=== PATIENT | male | born 1980 | race Two or more races ===

== ENCOUNTER → 2019-09-16 | Emergency (ER) | payer OTHER ==
[~2019-09-16] MED LIST: FOLIC ACID INJECTION - 1 MG, THIAMINE HCL 100 MG, MULTIVIT INJECTION ADULT 10 ML in SOD... IVPB ONE; SODIUM CHLORIDE 1,000 ML IV SCH
--- NOTE | 2019-09-16 23:48 | PDOC ---
History of Present Illness - General Stated Complaint: DIZZINESS Time Seen by Provider: 09/16/19 23:48 - History of Present Illness Initial Comments: 09/17/19 00:59 39 year old patient with a history of alcohol abuse who presents with episode of lightheadedness that occurred while walkign across the street. The patient denies persistence of lightheadedness, denies nausea, vomiting, unsteadiness on his feet or recent falls. Denies chest pain or shortness of breath. ROS GENERAL/CONSTITUTIONAL: No fever or chills. No weakness. CARDIOVASCULAR: No chest pain or shortness of breath RESPIRATORY: No cough, wheezing, or hemoptysis. GASTROINTESTINAL: No nausea, vomiting, diarrhea or constipation. GENITOURINARY: No dysuria, frequency, or change in urination. MUSCULOSKELETAL: No joint or muscle swelling or pain. No neck or back pain. SKIN: No rash NEUROLOGIC: No headache, +vertigo, No loss of consciousness, or change in strength/sensation. PE GENERAL: Awake, alert, AOx3 HEAD: No signs of trauma, normocephalic, atraumatic EYES: EOMI, sclera anicteric, conjunctiva clear ENT: oropharynx clear without exudates. Moist mucosa NECK: Normal ROM, supple LUNGS: No distress, speaks full sentences, clear to auscultation bilaterally HEART: Regular rate and rhythm, normal S1 and S2, no murmurs, rubs or gallops, peripheral pulses normal and equal bilaterally. ABDOMEN: Soft, nontender, No guarding, no rebound. No masses EXTREMITIES : Normal inspection, Normal range of motion, no edema. No clubbing or cyanosis. NEUROLOGICAL: Cranial nerves II through XII grossly intact. Normal speech, normal gait, no focal sensorimotor deficits SKIN: Warm, Dry, normal turgor, no rashes or lesions noted MDM DDX including but not limited to: r/o acs vs arrythmia ED Course: ekg: nsr at 64bpm, early repolarization Kaila Silva, PGY2 Emergency Medicine Past History - Past Medical History Allergies/Adverse Reactions: Allergies Allergy/AdvReac Type Severity Reaction Status Date / Time No Known Allergies Allergy Verified 06/24/12 13:44 Home Medications: Ambulatory Orders No Home Medications 06/24/12 Anemia: No Asthma: No Cancer: No Cardiac Disorders: No CVA: No COPD: No CHF: No Dementia: No Diabetes: No GI Disorders: No Disorders: No HTN: No Hypercholesterolemia: No Kidney Stones: No Liver Disease: No Seizures: No Thyroid Disease: No - Surgical History Abdominal Surgery: No Appendectomy: No Cardiac Surgery: No Cholecystectomy: No Lung Surgery: No Neurologic Surgery: No Orthopedic Surgery: Yes (fx of right femur at age of 15 years) - Reproductive History Testicular Surgery: No - Psycho Social/Smoking Cessation Hx Smoking History: Current every day smoker Have you smoked in the past 12 months: Yes Number of Cigarettes Smoked Daily: 20 'Breaking Loose' booklet given: 06/23/12 Hx Alcohol Use: Yes Drug/Substance Use Hx: Yes Substance Use Type: Alcohol, Marijuana Hx Substance Use Treatment: No ED Treatment Course - LABORATORY CBC & Chemistry Diagram: 09/17/19 01:00 09/17/19 01:00 Discharge - Discharge Information Problems reviewed: Yes Clinical Impression/Diagnosis: Lightheaded Condition: Stable Disposition: HOME - Admission No - Follow up/Referral - Patient Discharge Instructions Additional Instructions: You were seen in the ED for an episode of lightheadedness Your labwork and imaging were unremarkable. You may go to rehab You should follow up with your Family Doctor. Return to the ED if you experience worsening symptoms. - Post Discharge Activity
--- NOTE | 2019-09-16 23:51 | PDOC ---
Attending Attestation - Resident Resident Name: Kaila Silva - ED Attending Attestation I have performed the following: I have examined & evaluated the patient, The case was reviewed & discussed with the resident, I agree w/resident's findings & plan - HPI HPI: 09/17/19 01:36 see resident hpi - Physicial Exam PE: 09/17/19 01:36 agree with resident exam - Medical Decision Making 09/17/19 01:37 39-year-old male with an episode of lightheadedness requesting alcohol detox Patient asymptomatic at this time Plan for labs, EKG and CT scan of the brain with clearance for detox referral
[2019-09-17 00:21] VITALS: BP 110/74; PULSE 73; TEMP 97.9; BMI 22.0
[2019-09-17 01:28] LABS: BASO % 0.5 % (0-2.0); EOS % 4.4 % (0-4.5); HEMATOCRIT 46.9 % (35.4-49); HEMOGLOBIN 15.8 GM/dL (11.7-16.9); LYMPH % 26.9 % (8-40); MCH 28.9 pg (25.7-33.7); MCHC 33.7 g/dl (32.0-35.9); MEAN PLT VOLUME 10.3 fl (7.5-11.1); MONO % 6.7 % (3.8-10.2); NEUT % 61.5 % (42.8-82.8); PLATELET COUNT 184 K/MM3 (134-434); RBC 5.45 M/mm3 (4.00-5.60); RDW 14.6 % (11.9-15.9); WHITE BLOOD COUNT 5.9 K/mm3 (4.0-10.0)
[2019-09-17 02:02] LABS: ALBUMIN 4.3 g/dl (3.4-5.0); CALCIUM 9.3 mg/dL (8.5-10.1); CREATININE 1.3 mg/dL (0.55-1.3); POTASSIUM 3.9 mmol/L (3.5-5.1); TOT PROT 7.7 g/dl (6.4-8.2)
== END | disposition home or self-care (01) ==
LOC: JER 23:42
DX: R42 Dizziness and giddiness (principal); F17.210 Nicotine dependence, cigarettes, uncomplicated; F10.20 Alcohol dependence, uncomplicated; F12.20 Cannabis dependence, uncomplicated
CPT/HCPCS: 99283-25

== ENCOUNTER 2019-09-17 08:22 | Inpatient (IN) | payer OTHER ==
[2019-09-17 09:00] VITALS: BMI 19.8
--- NOTE | 2019-09-17 10:19 | HP ---
CIWA Score Nausea/Vomitin-No Nausea/No Vomiting Muscle Tremors: None Anxiety: 0-No Anxiety, at Ease Agitation: 0-Normal Activity Paroxysmal Sweats: No Perspiration Orientation: 0-Oriented Tacttile Disturbances: 0-None Auditory Disturbances: 0-None Visual Disturbances: 0-None Headache: 0-None Present CIWA-Ar Total Score: 0 - Admission Criteria OASAS Guidelines: Admission for Medically Managed Detox: Requires at least one of the followin. CIWA greater than 12 2. Seizures within the past 24 hours 3. Delirium tremens within the past 24 hours 4. Hallucinations within the past 24 hours 5. Acute intervention needed for co occurring medical disorder 6. Acute intervention needed for co occurring psychiatric disorder 7. Severe withdrawal that cannot be handled at a lower level of care (continued vomiting, continued diarrhea, abnormal vital signs) requiring intravenous medication and/or fluids 8. Admitting History and Physical - Smoking History Smoking history: Current every day smoker Have you smoked in the past 12 months: Yes Aproximately how many cigarettes per day: 20 - Alcohol/Substance Use Hx Alcohol Use: Yes Admission ROS [facility] Chief Complaint: " it's not about the substance, it's about the support " Allergies/Adverse Reactions: Allergies Allergy/AdvReac Type Severity Reaction Status Date / Time No Known Allergies Allergy Verified 09/17/19 08:49 History of Present Illness: pt here requesting assistance with tobacco and alcohol use , reports 7-10 cigs /day since 12 yrs ago , etoh 1 x 6 -pk of beer , latest use " when the [employer] didn't make the [employer] series " , first age of use teens , reports on average social use denies blackouts, seizures or tremors. PMHX : denies PSHX : r leg age 16 PSych : Exam Limitations: No Limitations - Ebola screening Have you traveled outside of the country in the last 21 days: No Have you had contact with anyone from an Ebola affected area: No Do you have a fever: No - Review of Systems Constitutional: No Symptoms Reported EENT: reports: Nose Congestion, Other (glasses - reading) Respiratory: reports: No Symptoms reported Cardiac: reports: No Symptoms Reported GI: reports: No Symptoms Reported : reports: No Symptoms Reported Musculoskeletal: reports: Joint Pain (right hip pain with lying on affected side) Integumentary: reports: No Symptoms Reported Neuro: reports: No Symptoms reported Endocrine: reports: No Symptoms Reported Psychiatric: reports: Orientated x3 Patient History - Patient Medical History Hx Anemia: No Hx Asthma: No Hx Chronic Obstructive Pulmonary Disease (COPD): No Hx Cancer: No Hx Cardiac Disorders: No Hx Congestive Heart Failure: No Hx Hypertension: No Hx Hypercholesterolemia: No Hx Pacemaker: No HX Cerebrovascular Accident: No Hx Seizures: No Hx Dementia: No Hx Diabetes: No Hx Gastrointestinal Disorders: No Hx Liver Disease: No Hx Genitourinary Disorders: No Hx Sexually Transmitted Disorders: No Hx Renal Disease (ESRD): No Hx Thyroid Disease: No Hx Human Immunodeficiency Virus (HIV): No Hx Hepatitis C: No Hx Depression: Yes (ON MEDS) Hx Suicide Attempt: No Hx Bipolar Disorder: No Hx Schizophrenia: No - Patient Surgical History Past Surgical History: Yes Hx Neurologic Surgery: No Hx Cataract Extraction: No Hx Cardiac Surgery: No Hx Lung Surgery: No Hx Breast Surgery: No Hx Breast Biopsy: No Hx Abdominal Surgery: No Hx Appendectomy: No Hx Cholecystectomy: No Hx Genitourinary Surgery: No Hx Section: No Hx Orthopedic Surgery: Yes (fx of right femur at age of 15 years) Anesthesia Reaction: No - PPD History Date: 06/26/12 - Smoking Cessation Smoking history: Current every day smoker Have you smoked in the past 12 months: Yes Aproximately how many cigarettes per day: 20 Hx Chewing Tobacco Use: No Initiated information on smoking cessation: Yes 'Breaking Loose' booklet given: 09/17/19 - Substances abused Alcohol Substance route: Oral Frequency: Daily Amount used: 5 cans of beer Age of first use: 17 Date of last use: 09/10/19 Admission Physical Exam S - Vital Signs Vital Signs: Vital Signs - 24 hr 09/17/19 08:46 Temperature 97.1 F L Pulse Rate 85 Respiratory 18 Rate Blood Pressure 127/61 - Physical General Appearance: Yes: No Apparent Distress HEENTM: Yes: EOMI, Hearing grossly Normal, Normocephalic, Normal Voice Respiratory: Yes: Chest Non-Tender, Lungs Clear, Normal Breath Sounds, No Respiratory Distress, No Accessory Muscle Use Neck: Yes: No masses,lesions,Nodules, Trachea in good position Cardiology: Yes: Regular Rhythm, Regular Rate, S1, S2 Abdominal: Yes: Non Tender, Flat, Soft Musculoskeletal: Yes: Gait Steady Extremities: Yes: Normal Range of Motion, Non-Tender Neurological: Yes: Fully Oriented, Alert, Motor Strength 5/5, Normal Mood/Affect Integumentary: Yes: Warm - Diagnostic (1) Alcohol abuse, episodic Current Visit: Yes Status: Chronic (2) Nicotine dependence Current Visit: Yes Status: Chronic Qualifiers: Nicotine product type: cigarettes Breathalyzer - Breathalyzer Breathalyzer: 0 Urine Drug Screen - Test Device Lot number: [id number] Expiration date: 05/12/21 - Control Is test valid?: Yes - Results Drug screen NEGATIVE: Yes Inpatient Rehab Admission - Rehab Decision to Admit Inpatient rehab admission?: Yes - Initial Determination Are CD services needed?: Yes Free of communicable disease: Yes Not in need of hospitalization: Yes - Rehab Admission Criteria Previous failed treatment: No Poor recovery environment: Yes Comorbidities: No Lacks judgement: No Patient is meeting Inpatient Rehab admission criteria:: No
[2019-09-17] MEDS ORDERED: MENTHOL/PHENOL 1 EACH UD MM PRN (11:24)
[2019-09-17] MEDS ORDERED: P-EPHED 60MG/TRIPROLIDI 2.5MG TABLET PO PRN (11:24)
[2019-09-17] MEDS ORDERED: MAGNESIUM HYDROX 2400MG/30ML ORAL SUSPENSION 30 ML CUP PO PRN (11:24)
[2019-09-17] MEDS ORDERED: guaiFENesin 200 MG/10 ML 10 ML UNIT-DOSE CUPS PO PRN (11:24)
[2019-09-17] MEDS ORDERED: MAG HYDROX/AL HYDROX/SIMETH 30 ML UNIT-DOSE CUP PO PRN (11:24)
[2019-09-17] MEDS ORDERED: MAGNESIUM CITRATE 300 ML BOTTLE PO PRN (11:24)
[2019-09-17 14:56] LABS: HEMATOCRIT 45.2 % (35.4-49); HEMOGLOBIN 15.1 GM/dL (11.7-16.9); MCH 29.1 pg (25.7-33.7); MCHC 33.5 g/dl (32.0-35.9); MEAN CELL VOLUME 86.8 fl (80-96); MEAN PLT VOLUME 10.6 fl (7.5-11.1); PLATELET COUNT 183 K/MM3 (134-434); RBC 5.21 M/mm3 (4.00-5.60); RDW 14.8 % (11.9-15.9); WHITE BLOOD COUNT 4.7 K/mm3 (4.0-10.0)
[2019-09-17 15:06] LABS: ALBUMIN 4.2 g/dl (3.4-5.0); BILIRUBIN,TOTAL 1.3 mg/dL (0.2-1); BLOOD UREA NITROGEN 8.9 mg/dL (7-18); CALCIUM 9.2 mg/dL (8.5-10.1); CREATININE 1.3 mg/dL (0.55-1.3); POTASSIUM 4.4 mmol/L (3.5-5.1); TOT PROT 7.5 g/dl (6.4-8.2)
[2019-09-17] MEDS: IBUPROFEN 400 MG TABLET (FP) PO PRN (17:35)
[2019-09-17] MEDS: ACETAMINOPHEN 325 MG TABLET (FP) PO PRN (21:59)
[2019-09-17] MEDS: THIAMINE HCL 100 MG TABLET (FP) PO SCH (22:47)
[2019-09-18] MEDS: PRENATAL VITAMINS W/ FOLIC ACID TABLET (FP) PO SCH (10:15)
[2019-09-18] MEDS: IBUPROFEN 400 MG TABLET (FP) PO PRN (10:18)
[2019-09-18] MEDS ORDERED: FLU VACCINE QUAD 60 MCG/0.5 ML (MDV 19-20) IM ONE (12:00)
[2019-09-18 16:52] LABS: URINE APPEARANCE CLEAR; URINE BILIRUBIN NEGATIVE (NEGATIVE); URINE COLOR YELLOW; URINE GLUCOSE (UA) NEGATIVE (NEGATIVE); URINE KETONE NEGATIVE (NEGATIVE); URINE LEUK ESTERASE NEGATIVE (NEGATIVE); URINE NITRITE NEGATIVE (NEGATIVE); URINE PROTEIN NEGATIVE (NEGATIVE)
[2019-09-18] MEDS: MELATONIN 5 MG TABLETS PO PRN (21:25)
[2019-09-18] MEDS: THIAMINE HCL 100 MG TABLET (FP) PO SCH (21:25)
[2019-09-19] MEDS: IBUPROFEN 400 MG TABLET (FP) PO PRN ×2 (07:01→11:05)
--- NOTE | 2019-09-19 09:41 | CONSULT ---
[facility] Psychiatric Consult - Data Date of interview: 09/19/19 Admission source: [facility] Identifying data: Patient is a 39 year old single male, without children, unemployed, homeless, and is supported by baumann assistance by social sciences instructor. This is patient's first admission to rehab at [facility]. Patient admitted to for alcohol dependence. Substance Abuse History: Smoking Cessation. Smoking history: Current every day smoker. Have you smoked in the past 12 months: Yes. Aproximately how many cigarettes per day: 20. Hx Chewing Tobacco Use: No. Initiated information on smoking cessation: Yes. 'Breaking Loose' booklet given: 09/17/19. - Substances abused. Alcohol. Substance route: Oral. Frequency: Daily. Amount used: 5 cans of beer. Age of first use: 17. Date of last use: 09/10/19 Medical History: denies. Psychiatric History: Patient's first psychiatric contact was in 2001 after he was admitted to [facility] after reporting homicidal ideation. As per patient he was homeless and stated he was homicidal so that he would be admitted. After discharge patient did not see a psychiatrisrt again until 2014 after feeling depressed and going through a spirtual transformation (wanting to become a better version of himself). As per patient he was diagnosed with depression and prescribed abilify 30 + Klonopin (unknown dose). He reports sub- optimal adherence to his medications and has not received any psychiatric treatment in approximately three years. Patient denies history of psychiatric hospitalization and suicide attempt. Patient denies auditory/visual hallucinations, suicidal/homicidal ideation. No psychosis noted. At present patient is reporting difficulty sleeping. Physical/Sexual Abuse/Trauma History: denies. Mental Status Exam - Mental Status Exam Alert and Oriented to: Time, Place, Person Cognitive Function: Good Patient Appearance: Well Groomed Mood: Euthymic Affect: Mood Congruent Patient Behavior: Cooperative Speech Pattern: Appropriate Voice Loudness: Normal Thought Process: Goal Oriented Thought Disorder: Not Present Hallucinations: Denies Suicidal Ideation: Denies Homicidal Ideation: Denies Insight/Judgement: Poor Sleep: Poorly Appetite: Fair Muscle strength/Tone: Normal Gait/Station: Normal Psychiatric Findings - Problem List ([place] 1, 2,3) (1) Alcohol abuse, episodic Current Visit: Yes Status: Chronic (2) Nicotine dependence Current Visit: Yes Status: Chronic Qualifiers: Nicotine product type: cigarettes (3) Insomnia Current Visit: Yes Status: Acute - Initial Treatment Plan Initial Treatment Plan: Psychoeducation provided. Rehab in progress. Will order Belsomra 10mg HS. Benefits and side effects discussed. Verbal consent given.
[2019-09-19] MEDS: PRENATAL VITAMINS W/ FOLIC ACID TABLET (FP) PO SCH (11:04)
--- NOTE | 2019-09-19 12:21 | PN ---
[facility] Progress Note Note: Vital Signs Temperature 98.6 F 09/19/19 07:05 Pulse Rate 78 09/19/19 07:05 Respiratory Rate 18 09/19/19 07:05 Blood Pressure 100/65 09/19/19 07:05 O2 Sat by Pulse Oximetry (%) Laboratory Last Values WBC 4.7 K/mm3 (4.0-10.0) 09/17/19 11:25 RBC 5.21 M/mm3 (4.00-5.60) 09/17/19 11:25 Hgb 15.1 GM/dL (11.7-16.9) 09/17/19 11:25 Hct 45.2 % (35.4-49) 09/17/19 11:25 MCV 86.8 fl (80-96) 09/17/19 11:25 MCH 29.1 pg (25.7-33.7) 09/17/19 11:25 MCHC 33.5 g/dl (32.0-35.9) 09/17/19 11:25 RDW 14.8 % (11.9-15.9) 09/17/19 11:25 Plt Count 183 K/MM3 (134-434) 09/17/19 11:25 MPV 10.6 fl (7.5-11.1) 09/17/19 11:25 Sodium 139 mmol/L (136-145) 09/17/19 11:25 Potassium 4.4 mmol/L (3.5-5.1) 09/17/19 11:25 Chloride 104 mmol/L (98-107) 09/17/19 11:25 Carbon Dioxide 31 mmol/L (21-32) 09/17/19 11:25 Anion Gap 4 MMOL/L (8-16) L 09/17/19 11:25 BUN 8.9 mg/dL (7-18) 09/17/19 11:25 Creatinine 1.3 mg/dL (0.55-1.3) 09/17/19 11:25 Est GFR (CKD-EPI)AfAm 80.79 09/17/19 11:25 Est GFR (CKD-EPI)NonAf 69.70 09/17/19 11:25 Random Glucose 57 mg/dL (74-106) L 09/17/19 11:25 Calcium 9.2 mg/dL (8.5-10.1) 09/17/19 11:25 Total Bilirubin 1.3 mg/dL (0.2-1) H 09/17/19 11:25 AST 14 U/L (15-37) L 09/17/19 11:25 ALT 25 U/L (13-61) 09/17/19 11:25 Alkaline Phosphatase 107 U/L (45-117) 09/17/19 11:25 Total Protein 7.5 g/dl (6.4-8.2) 09/17/19 11:25 Albumin 4.2 g/dl (3.4-5.0) 09/17/19 11:25 Urine Color Yellow 09/17/19 16:00 Urine Appearance Clear 09/17/19 16:00 Urine pH 7.0 (5.0-8.0) 09/17/19 16:00 Ur Specific [place] 1.018 (1.010-1.035) 09/17/19 16:00 Urine Protein Negative (NEGATIVE) 09/17/19 16:00 Urine Glucose (UA) Negative (NEGATIVE) 09/17/19 16:00 Urine Ketones Negative (NEGATIVE) 09/17/19 16:00 Urine Blood Negative (NEGATIVE) 09/17/19 16:00 Urine Nitrite Negative (NEGATIVE) 09/17/19 16:00 Urine Bilirubin Negative (NEGATIVE) 09/17/19 16:00 Urine Urobilinogen 1.0 mg/dL (0.2-1.0) 09/17/19 16:00 Ur Leukocyte Esterase Negative (NEGATIVE) 09/17/19 16:00 RPR Titer Nonreactive (NONREACTIVE) 09/17/19 11:25 labs reviewed continue to monitor
[2019-09-19] MEDS: THIAMINE HCL 100 MG TABLET (FP) PO SCH (21:49)
[2019-09-19] MEDS ORDERED: SUVOREXANT 10 MG TABLET PO PRN (22:00)
[2019-09-20] MEDS: IBUPROFEN 400 MG TABLET (FP) PO PRN ×2 (06:19→21:27)
[2019-09-20] MEDS: ACETAMINOPHEN 325 MG TABLET (FP) PO PRN (10:18)
[2019-09-20] MEDS: PRENATAL VITAMINS W/ FOLIC ACID TABLET (FP) PO SCH (10:18)
[2019-09-20] MEDS: THIAMINE HCL 100 MG TABLET (FP) PO SCH (21:26)
[2019-09-20] MEDS: MELATONIN 5 MG TABLETS PO PRN (21:26)
[2019-09-21] MEDS: PRENATAL VITAMINS W/ FOLIC ACID TABLET (FP) PO SCH (11:05)
[2019-09-21] MEDS: IBUPROFEN 400 MG TABLET (FP) PO PRN ×2 (13:03→22:23)
[2019-09-21] MEDS: THIAMINE HCL 100 MG TABLET (FP) PO SCH (22:22)
[2019-09-21] MEDS: MELATONIN 5 MG TABLETS PO PRN (22:24)
[2019-09-22] MEDS: IBUPROFEN 400 MG TABLET (FP) PO PRN ×2 (06:26→12:03)
[2019-09-22] MEDS: PRENATAL VITAMINS W/ FOLIC ACID TABLET (FP) PO SCH (10:05)
--- NOTE | 2019-09-22 14:38 | PN ---
[facility] Progress Note Note: Psychiatric nurse practitoner note: Amelie 10mg renewed. Verbal consent given.
[2019-09-22] MEDS ORDERED: SUVOREXANT 10 MG TABLET PO PRN (22:00)
[2019-09-22] MEDS: SUVOREXANT 10 MG TABLET PO PRN (22:14)
[2019-09-22] MEDS: THIAMINE HCL 100 MG TABLET (FP) PO SCH (22:14)
[2019-09-22] MEDS: ACETAMINOPHEN 325 MG TABLET (FP) PO PRN (22:15)
[2019-09-23] MEDS: IBUPROFEN 400 MG TABLET (FP) PO PRN (07:17)
[2019-09-23] MEDS: PRENATAL VITAMINS W/ FOLIC ACID TABLET (FP) PO SCH (10:50)
[2019-09-23] MEDS: ACETAMINOPHEN 325 MG TABLET (FP) PO PRN (11:05)
[2019-09-23] MEDS: THIAMINE HCL 100 MG TABLET (FP) PO SCH (21:24)
[2019-09-23] MEDS: MELATONIN 5 MG TABLETS PO PRN (21:24)
[2019-09-23] MEDS: SUVOREXANT 10 MG TABLET PO PRN (21:25)
[2019-09-24] MEDS: PRENATAL VITAMINS W/ FOLIC ACID TABLET (FP) PO SCH (10:01)
[2019-09-24] MEDS: ACETAMINOPHEN 325 MG TABLET (FP) PO PRN (10:02)
--- NOTE | 2019-09-24 11:30 | PN ---
[facility] Progress Note Note: Pt c/o right groin pain lasting for past 1-2 months. Denies any truama but wondering if due to "walking too much". Pt also wants to see the psych to re- evaluate "my sleeping problems because I have to get it together. Vital Signs (72 hours) 09/22/19 09/22/19 09/22/19 00:30 03:30 06:54 Temperature 98 F Pulse Rate 78 Respiratory 18 18 18 Rate Blood Pressure 107/77 09/23/19 09/23/19 09/24/19 00:30 03:30 00:30 Temperature Pulse Rate Respiratory 18 18 17 Rate Blood Pressure 09/24/19 09/24/19 03:30 06:54 Temperature 98.5 F Pulse Rate 86 Respiratory 17 18 Rate Blood Pressure 93/68 Laboratory Tests 09/17/19 09/17/19 09/17/19 11:25 11:25 11:25 WBC 4.7 RBC 5.21 Hgb 15.1 Hct 45.2 MCV 86.8 MCH 29.1 MCHC 33.5 RDW 14.8 Plt Count 183 MPV 10.6 Sodium 139 Potassium 4.4 Chloride 104 Carbon Dioxide 31 Anion Gap 4 L BUN 8.9 Creatinine 1.3 Est GFR (CKD-EPI)AfAm 80.79 Est GFR (CKD-EPI)NonAf 69.70 Random Glucose 57 L Calcium 9.2 Total Bilirubin 1.3 H AST 14 L ALT 25 Alkaline Phosphatase 107 Total Protein 7.5 Albumin 4.2 Urine Color Urine Appearance Urine pH Ur Specific [place] Urine Protein Urine Glucose (UA) Urine Ketones Urine Blood Urine Nitrite Urine Bilirubin Urine Urobilinogen Ur Leukocyte Esterase RPR Titer Nonreactive 09/17/19 16:00 WBC RBC Hgb Hct MCV MCH MCHC RDW Plt Count MPV Sodium Potassium Chloride Carbon Dioxide Anion Gap BUN Creatinine Est GFR (CKD-EPI)AfAm Est GFR (CKD-EPI)NonAf Random Glucose Calcium Total Bilirubin AST ALT Alkaline Phosphatase Total Protein Albumin Urine Color Yellow Urine Appearance Clear Urine pH 7.0 Ur Specific [place] 1.018 Urine Protein Negative Urine Glucose (UA) Negative Urine Ketones Negative Urine Blood Negative Urine Nitrite Negative Urine Bilirubin Negative Urine Urobilinogen 1.0 Ur Leukocyte Esterase Negative RPR Titer A/P Groin pain Poor sleep hygiene Psych re-evaluation for sleep problems Robaxin 500 mg po tid prn
[2019-09-24] MEDS: METHOCARBAMOL 500 MG TABLET PO PRN (11:56)
[2019-09-24] MEDS: THIAMINE HCL 100 MG TABLET (FP) PO SCH (21:31)
[2019-09-24] MEDS: MELATONIN 5 MG TABLETS PO PRN (21:31)
[2019-09-24] MEDS: SUVOREXANT 10 MG TABLET PO PRN (21:32)
[2019-09-24] MEDS: IBUPROFEN 400 MG TABLET (FP) PO PRN (21:33)
[2019-09-25] MEDS: PRENATAL VITAMINS W/ FOLIC ACID TABLET (FP) PO SCH (10:57)
[2019-09-25] MEDS: METHOCARBAMOL 500 MG TABLET PO PRN (15:20)
[2019-09-25] MEDS: THIAMINE HCL 100 MG TABLET (FP) PO SCH (22:54)
[2019-09-26] MEDS: SUVOREXANT 10 MG TABLET PO PRN ×2 (00:45→22:07)
[2019-09-26] MEDS: PRENATAL VITAMINS W/ FOLIC ACID TABLET (FP) PO SCH (10:52)
--- NOTE | 2019-09-26 12:54 | PN ---
[facility] Progress Note (SOAP) Subjective: Patient to be discharged tomorrow, September 27, 2019. Refused examination, refused to discuss his needs for medication or his plans for aftercare. States he discussed everything with his counselor and did not have a need to discuss anything with the medical provider. CBC, BMP 09/17/19 11:25 09/17/19 11:25 Vital Signs Period Temp Pulse Resp BP Sys/Velez Pulse Ox Last 24 Hr 98.4 F 77 18-18 110/67 Objective: Refused examination 09/26/19 12:52 Assessment: Appears medically stable for discharge, unable to assess because he refuses examination or discussion. 09/26/19 12:52 Plan: Unable to determine aftercare plans; there are no meds that need prescriptions transmitted to a pharmacy.
[2019-09-26] MEDS: THIAMINE HCL 100 MG TABLET (FP) PO SCH ×2 (22:02→22:10)
[2019-09-26] MEDS: MELATONIN 5 MG TABLETS PO PRN (22:06)
[2019-09-26] MEDS: METHOCARBAMOL 500 MG TABLET PO PRN (22:06)
[2019-09-27 06:46] VITALS: BP 127/65; PULSE 74; TEMP 98
[2019-09-27] MEDS: PRENATAL VITAMINS W/ FOLIC ACID TABLET (FP) PO SCH (10:30)
== END 2019-09-27 12:05 | disposition home or self-care (01) | DRG 772 ==
LOC: YASAS 08:22 → Y3W 11:40
PROVIDERS: ADMIT Neuromusculoskeletal Medicine & OMM; ATTEND Neuromusculoskeletal Medicine & OMM
PROC: HZ42ZZZ Group Counseling for Substance Abuse Treatment, Cognitive-Behavioral (ICD-10-PCS; principal; 2019-09-17)
DX: F10.20 Alcohol dependence, uncomplicated (principal); F17.210 Nicotine dependence, cigarettes, uncomplicated; F32.9 Major depressive disorder, single episode, unspecified; G47.00 Insomnia, unspecified; Z59.0 Homelessness
CPT/HCPCS: 36415; 70450-TC; 71045-TC-FY; 80053; 80307; 81003; 84443; 84484; 85025; 85027; 86593; J7030; Q2036